=== PATIENT | female | born 1985 | race Caucasian/White ===

== ENCOUNTER 2018-08-05 10:19 | Emergency (ER) | payer SELFPAY ==
[~2018-08-05] VITALS: Ht 165.1 cm; Wt 59.0 kg
[2018-08-05] MEDS ORDERED: LORAZEPAM 2MG/ML CPJ IM STA (10:37)
[2018-08-05] MEDS ORDERED: HALOPERIDOL LACTATE 5MG/ML VIAL IM STA (10:37)
[2018-08-05 11:46] LABS: BASOPHILS % 0.4 % (0.0-2.0); EOSINOPHILS % 1.2 % (0.0-5.0); HEMATOCRIT. 37.8 % (36.0-48.0); HEMOGLOBIN. 12.5 g/dL (12.0-16.0); LYMPHOCYTES % 19.9 % (20.0-50.0); MEAN CORPUSCULAR HEMOGLOBIN 28.2 pg (28.0-32.0); MEAN CORPUSCULAR VOLUME 85.1 fL (81.0-99.0); NEUTROPHILS % 73.5 % (40.0-76.0); PLATELET 323 x1000/uL (130-400); RED BLOOD CELL COUNT 4.45 mill/uL (4.2-5.4); RED CELL DISTRIBUTION WIDTH 20.9 % (11.6-14.6)
[2018-08-05 11:47] LABS: CHLORIDE 109 mEq/L (98-107)
[2018-08-05 11:53] LABS: ETHANOL BLOOD < 10 mg/dL
[2018-08-05 14:25] LABS: CLARITY URINE CLEAR (CLEAR); COLOR URINE YELLOW (YELLOW); KETONES URINE TRACE (NEGATIVE); LEUKOCYTE ESTERASE URINE TRACE (NEGATIVE); NITRITE URINE NEGATIVE (NEGATIVE); OCCULT BLOOD URINE NEGATIVE (NEGATIVE); PROTEIN URINE TRACE (NEGATIVE); SPECIFIC GRAVITY URINE 1.027 (1.005-1.030); UROBILINOGEN URINE 0.2 E.U./dL (0.2-1.0)
[2018-08-05 14:50] LABS: *BARBITURATES SCREEN URINE NEGATIVE (NEGATIVE); *BENZODIAZEPINES SCREEN URINE NEGATIVE (NEGATIVE)
[2018-08-05 14:51] LABS: METHADONE URINE SCREEN NEGATIVE (NEGATIVE); OPIATES URINE SCREEN NEGATIVE (NEGATIVE); PHENCYCLIDINE URINE SCREEN NEGATIVE (NEGATIVE)
[2018-08-05 14:59] LABS: *AMPHETAMINES SCREEN URINE PRESUMTIVE POSITIVE (NEGATIVE); *COCAINE SCREEN URINE PRESUMTIVE POSITIVE (NEGATIVE); CANNABINOID URINE SCREEN PRESUMTIVE POSITIVE (NEGATIVE)
[2018-08-05] MEDS ORDERED: POTASSIUM CHLORIDE 20MEQ TABLET SR PO ONE (15:15)
[2018-08-05] MEDS ORDERED: DEXT 5%/0.45% NACL KCL 20MEQ/L 1,000 ML IV ONE (17:15)
[2018-08-06 10:40] VITALS: BP 115/68
== END 2018-08-06 11:00 | disposition home or self-care (01) ==
LOC: ER 10:28 → EDBD 10:28 → ER 08-06 11:00
DX: T40.5X1A Poisoning by cocaine, accidental (unintentional), initial encounter (principal); T43.621A Poisoning by amphetamines, accidental (unintentional), initial encounter; T40.7X1A Poisoning by cannabis (derivatives), accidental (unintentional), initial encounter; F91.8 Other conduct disorders; R45.1 Restlessness and agitation; R03.0 Elevated blood-pressure reading, without diagnosis of hypertension; D72.829 Elevated white blood cell count, unspecified; Y93.89 Activity, other specified; Y92.480 Sidewalk as the place of occurrence of the external cause; Z78.1 Physical restraint status
CPT/HCPCS: 36415; 80053; 80305; 80307; 80329; 81003; 81025; 85025; 96360; 96361; 96372; 99285; G0482; J1630; J2060; Z7610